=== PATIENT | male | born 1945 | race Two or more races ===

== ENCOUNTER 2018-10-24 10:40 | Outpatient (CLI) | payer OTHER | END 2018-10-24 10:42 | disposition home or self-care (01) | LOC: NUCLEAR 10:40 | DX: I35.9 Nonrheumatic aortic valve disorder, unspecified (principal) ==

== ENCOUNTER 2019-01-05 09:24 | Outpatient (CLI) | payer OTHER | END 2019-01-05 09:34 | disposition home or self-care (01) | LOC: NUCLEAR 09:24 | DX: I49.8 Other specified cardiac arrhythmias (principal); I77.810 Thoracic aortic ectasia ==

== ENCOUNTER 2020-07-23 12:19 | Outpatient (CLI) | payer OTHER | END 2020-07-23 12:21 | disposition home or self-care (01) | LOC: TOM 12:19 | PROVIDERS: ATTEND Internal Medicine Cardiovascular Disease | DX: R10.10 Upper abdominal pain, unspecified (principal) ==

== ENCOUNTER 2021-03-10 10:12 | Outpatient (CLI) | payer OTHER | END 2021-03-10 10:19 | disposition home or self-care (01) | LOC: RAD 10:12 | PROVIDERS: ATTEND Ophthalmology | DX: I10 Essential (primary) hypertension (principal); Z98.41 Cataract extraction status, right eye; H25.011 Cortical age-related cataract, right eye ==

== ENCOUNTER 2021-09-01 13:53 | Emergency (ER) | payer OTHER ==
[~2021-09-01] VITALS: Ht 177.8 cm; Wt 80.7 kg
[2021-09-01] MEDS ORDERED: ATORVASTATIN CA20 MG PO (14:15)
[2021-09-01] MEDS ORDERED: TAMS0.4C PO (14:16)
[2021-09-01] MEDS ORDERED: ZESTRIL2.5 MG (14:16)
[2021-09-01] MEDS ORDERED: LEVOFLOXACIN750 MG PO (18:14)
== END 2021-09-01 18:29 | disposition home or self-care (01) ==
LOC: ER 13:53
DX: N41.8 Other inflammatory diseases of prostate (principal); R68.83 Chills (without fever); Z20.822 Contact with and (suspected) exposure to COVID-19; K80.20 Calculus of gallbladder without cholecystitis without obstruction; N32.89 Other specified disorders of bladder; K57.90 Diverticulosis of intestine, part unspecified, without perforation or abscess without bleeding

== ENCOUNTER 2021-11-26 09:57 | Outpatient (CLI) | payer OTHER ==
[~2021-11-26 09:57] MED LIST: ATORVASTATIN CA20 MG PO; LEVOFLOXACIN750 MG PO; TAMS0.4C PO; ZESTRIL2.5 MG
== END 2021-11-26 10:07 | disposition home or self-care (01) ==
LOC: PPH VACUNA 09:57
PROVIDERS: ATTEND Emergency Medicine Pediatric Emergency Medicine
DX: Z23 Encounter for immunization (principal)

== ENCOUNTER 2022-03-15 08:13 | Emergency (ER) | payer OTHER ==
[~2022-03-15] VITALS: Ht 177.8 cm; Wt 80.7 kg
[2022-03-15] MEDS ORDERED: CHILDREN'S ASPI81 MG PO (08:38)
== END 2022-03-15 11:52 | disposition home or self-care (01) ==
LOC: ER 08:13
DX: U07.1 COVID-19 (principal)

== ENCOUNTER 2024-07-15 11:52 | Emergency (ER) | payer OTHER ==
[~2024-07-15] VITALS: Ht 177.8 cm; Wt 80.7 kg
[~2024-07-15 11:52] MED LIST changes: +CHILDREN'S ASPI81 MG PO
[2024-07-15] MEDS ORDERED: ONDANSETRON HCL 2 MG/ML VIAL ONE (16:52)
[2024-07-15] MEDS ORDERED: 0.9 % SODIUM CHLORIDE 1,000 ML IV SCH (17:00)
[2024-07-15] MEDS ORDERED: ONDANSETRON HCL 2 MG/ML VIAL IV ONE (17:00)
[2024-07-15 17:03] LABS: HEMATOCRIT 46.4 % (39.0-48.0); HEMOGLOBIN 15.5 g/dL (13-16.00); MEAN CELL VOLUME 91.3 fL (80.0-100.00); MEAN CORPUSCULAR HEMOGLOBIN 30.6 pg (27.00-32.0); MEAN CORPUSCULAR HGB CONC 33.5 g/dl (32.0-36.0); PLATELET COUNT 131 K/uL (150-450); RED BLOOD COUNT 5.08 M/uL (4.00-6.00); RED CELL DISTRIBUTION WIDTH 13.9 % (11.5-14.5)
[2024-07-15 17:14] LABS: PH,URINE 6.5 (5.0-8.0); URINE APPEARANCE Turbid; URINE BILIRRUBIN Negative (NEGATIVE); URINE BLOOD Moderate; URINE COLOR Yellow; URINE EPITHELIAL CELLS 2.5 uL (0.0-38.8); URINE GLUCOSE Negative (NEGATIVE); URINE LEUKOCYTE Large; URINE NITRATE Positive; URINE PROTEIN 30 (NEGATIVE); URINE UROBILINOGEN 0.2 E.U./dl; URINE WBC 3436.6 uL (0.0-23.2)
[2024-07-15 17:20] LABS: URINE BACTERIA > 9821.5 uL (0.0-1933); URINE CAST 1.03 uL (0.0-1.40); URINE KETONE 40 (NEGATIVE)
[2024-07-15 17:23] LABS: INR 1.1; PARTIAL THROMBOPLASTIN TIME 26.7 SECONDS (22.0-34.0); PROTHROMBIN TIME 11.9 SECONDS (9.0-11.5)
[2024-07-15 17:28] LABS: ALBUMIN 3.8 gm/dL (3.4-5.0); BILIRUBIN TOTAL 1.65 mg/dL (0.3-1.2); CALCIUM 9.3 mg/dL (8.5-10.1); CREATININE SERUM 1.03 mg/dL (0.70-1.30); GFR 69.31; GLOBULINA 3.3 G/DL (2.4-3.5); INFLUENZA A AG NEGATIVE (NEGATIVE); POTASSIUM 4.16 mEq/L (3.5-5.1); TOTAL PROTEIN 7.1 gm/dL (6.4-8.2)
[2024-07-15 17:28] LABS: COVID-19 AG NEGATIVE (NEGATIVE)
[2024-07-15] MEDS ORDERED: CEFTRIAXONE SODIUM 1,000 MG VIAL ONE (20:43)
[2024-07-15] MEDS ORDERED: CEFTRIAXONE SODIUM 1,000 MG VIAL IV ONE (21:00)
== END 2024-07-15 21:09 | disposition home or self-care (01) ==
LOC: ER 16:20
PROVIDERS: General Practice
DX: N39.0 Urinary tract infection, site not specified (principal); Z20.822 Contact with and (suspected) exposure to COVID-19; B96.29 Other Escherichia coli [E. coli] as the cause of diseases classified elsewhere; Z16.11 Resistance to penicillins; K57.30 Diverticulosis of large intestine without perforation or abscess without bleeding; K80.20 Calculus of gallbladder without cholecystitis without obstruction
CPT/HCPCS: 36415; 71046; 74177; 96365; 96366; 99284; J0696; J2405; J7030; Q9965

== ENCOUNTER → 2024-12-05 | Emergency (ER) | payer OTHER ==
[~2024-12-05] MED LIST changes: +CEFTRIAXONE SODIUM 1,000 MG VIAL ONE; +DIPHTH,PERTUSS(ACELL),TET VAC 0.5 ML SYRINGE IM ONE; +LIDOCAINE HCL 1% 10ML VIAL ONE
== END | disposition home or self-care (01) ==
LOC: ER 07:13
DX: S40.812A Abrasion of left upper arm, initial encounter (principal); S80.812A Abrasion, left lower leg, initial encounter; W18.39XA Other fall on same level, initial encounter; Y93.89 Activity, other specified; Y92.89 Other specified places as the place of occurrence of the external cause; Y99.9 Unspecified external cause status; I10 Essential (primary) hypertension
CPT/HCPCS: 96372; 99282; J0696; J3490